=== PATIENT | male | born 1955 | race Caucasian/White ===

== ENCOUNTER 2023-11-13 13:49 | Emergency (ER) | payer SELFPAY ==
[~2023-11-13] VITALS: Ht 170.2 cm; Wt 110.0 kg
[2023-11-13 13:51] VITALS: O2SAT 97
[2023-11-13] MEDS ORDERED: IOHEXOL-350 100 ML BOTTLE ONE (14:19)
[2023-11-13] MEDS: ASPIRIN 325MG EC TABLET PO ONE (14:55)
[2023-11-13 15:37] LABS: BASOPHILS % 0.4 % (0.0-2.0); EOSINOPHILS % 2.7 % (0.0-5.0); HEMATOCRIT. 38.5 % (42.0-52.0); HEMOGLOBIN. 12.7 g/dL (14.0-18.0); LYMPHOCYTES % 19.8 % (20.0-50.0); MEAN CORPUSCULAR HEMOGLOBIN 28.7 pg (28.0-32.0); MEAN PLATELET VOLUME 9.2 fl (7.4-10.4); MONOCYTES % 7.8 % (2.0-8.0); NEUTROPHILS % 69.3 % (40.0-76.0); PLATELET 209 x1000/uL (130-400); RED BLOOD CELL COUNT 4.43 mill/uL (4.7-6.1); RED CELL DISTRIBUTION WIDTH 15.5 % (11.6-14.6); WHITE BLOOD COUNT 9.8 x1000/uL (4.5-11.0)
[2023-11-13 15:42] LABS: CHLORIDE 106 mEq/L (98-107); POTASSIUM 4.3 mEq/L (3.5-5.1); SODIUM 138 mEq/L (136-145)
[2023-11-13 15:43] LABS: CALCIUM 8.7 mg/dL (8.7-10.4); CARBON DIOXIDE 27 mEq/L (21-32)
[2023-11-13 15:47] VITALS: BP 134/71; PULSE 71; RESP 14; TEMP 99
[2023-11-13 15:48] LABS: CREATININE 0.7 mg/dL (0.6-1.3); GLUCOSE 106 mg/dL (70-105); PROTHROMBIN TIME 11.6 sec (9.6-11.0); UREA NITROGEN BLOOD 12 mg/dL (9-23)
[2023-11-13 15:50] LABS: ETHANOL BLOOD < 10 mg/dL (<10); TROPONIN I HIGH SENSITIVITY < 4 ng/L (3.0-53)
== END 2023-11-13 17:00 | disposition short-term general hospital (02) ==
LOC: ER 13:49 → EDBD 13:49 → ER 17:00
DX: I63.89 Other cerebral infarction (principal); I10 Essential (primary) hypertension
CPT/HCPCS: 80048; 80320; 85025; 85610; 84484; 36415; 71045; 70496; 70498; 70450; 93005; 99285; Q9967; G0480